=== PATIENT | female | born 1980 ===

== ENCOUNTER 2020-09-25 18:13 | Emergency (ER) | payer OTHER, SELFPAY ==
[2020-09-25] VITALS (7 sets, daily range): BP systolic 104–138; BP diastolic 63–118; PULSE 56–78; RESP 14–20; TEMP 36.6; O2SAT 98–100
--- NOTE | ~2020-09-25 | XR_ITS ---
EXAMINATION: XR hip RT 2V w AP pelvis DATE: 09/25/2020 19:31 INDICATION: Right hip injury. TECHNIQUE: An anteroposterior view of the pelvis on 2 radiographs and 2 views of right hip were obtai huma. COMPARISON: None. FINDINGS: Bone alignment is normal. No fracture. The hip joint spaces are normal. Surgical clips over lie right abdomen. Bowel staple lines are noted. IMPRESSION: 1. No fracture. Reviewed, dictated and finalized at location A. ING OPERATOR IMPRESSION: 1. No fracture.
--- NOTE | ~2020-09-25 | CT_ITS ---
EXAMINATION: CT brain wo con DATE: 09/25/2020 19:30 INDICATION: Head injury. TECHNIQUE: Computed tomography (CT) of the head was performed without intravenous contrast. The mA wa s adjusted according to patient size. Iterative reconstruction technique was employed. The dose-lengt h product was 605.33 mGy-cm. COMPARISON: None FINDINGS: There is no intracranial hemorrhage, acute infarction, or abnormal intracranial mass lesion . The ventricles are normal in size. There is mild mucosal thickening in sphenoid sinus. The mastoid air cells are normal. The orbits are normal. IMPRESSION: 1. Normal brain. Reviewed, dictated and finalized at location A. CTOR MARKET RESEARCH IMPRESSION: 1. Normal brain.
--- NOTE | ~2020-09-25 | XR_ITS ---
EXAMINATION: XR elbow RT 2V DATE: 09/25/2020 19:31 INDICATION: Right elbow pain. Fall. TECHNIQUE: 4 views of right elbow were obtained. COMPARISON: None. FINDINGS: Bone alignment is normal. No fracture. Joint spaces are well maintained. There is no elbow joint effusion. IMPRESSION: 1. Normal right elbow. Reviewed, dictated and finalized at location A. RICT ADMINISTRATIVE ASSISTANT IMPRESSION: 1. Normal right elbow.
--- NOTE | ~2020-09-25 | CT_ITS ---
EXAMINATION: CT cervical spine wo con DATE: 09/25/2020 19:29 INDICATION: Neck injury. TECHNIQUE: Computed tomography (CT) of the cervical spine was performed without intravenous contrast. Automated exposure control and iterative reconstruction technique were employed. The dose-length pro duct was 451.67 mGy-cm. COMPARISON: None FINDINGS: There is hypolordosis of cervical spine. Vertebral body heights are normal. C1 ring is unun ited posteriorly, a normal variant. Intervertebral disc heights are normal. 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 At C4-C5, there is mild bilateral uncovertebral joint osteoarth ritis. At C4-C5, there is mild right neural foraminal stenosis. No central canal stenosis. IMPRESSION: 1. No fracture. Reviewed, dictated and finalized at location A. ING MACHINE MECHANIC IMPRESSION: 1. No fracture.
[2020-09-25 18:32] LABS: Glucose Point of Care 129 (65-105)
[2020-09-25 18:57] LABS: Pregnancy On Board Control Positive; Urine Pregnancy Test Negative
[2020-09-25] MEDS: ACETAMINOPHEN 500 MG TABLET 1000 MG PO (19:25)
--- NOTE | 2020-09-25 19:45 | ED.FALL ---
HPI - Fall General Chief Complaint: Fall Stated Complaint: head injury Source: patient Mode of arrival: ambulatory Limitations: no limitations History of Present Illness HPI Narrative: this is a 40-year-old female that presents after she slipped while at home on a wet floor and fell from a standing position hitting her right elbow right hip area and hitting head and causing pain in her neck as well. The patient slipped this occurred about 3 in the afternoon she thinks she lost consciousness for a few seconds. Currently the patient seems to be slightly confused with no nausea vomiting mild headache with no blurry vision does have some neck pain but has good range of motion and, having right elbow pain and mild bruising and swelling but has good range of motion and right hip pain with palpation and movement. Patient is neurologically intact with no blurry vision no focal deficits no arm or leg weakness. complaint: fall Onset (ago): hour(s) Fall from: standing Fall witnessed: yes, by family Place fall occurred: home Loss of consciousness: yes Length of LOC: second(s) Prolonged down time: no Symptoms prior to fall: none Context: tripped/slipped Location of injury: head and other ( neck right elbow and right hip.) Location of injury - extremities: Right: elbow ( Pain with swelling) and thigh ( pain and tenderness with palpation) Severity: moderate Severity scale (1-10): 6 Quality: aching Related Data Home Medications Medication Instructions Recorded Confirmed buspirone 15 mg PO DAILY 09/25/20 09/25/20 citalopram 20 mg PO DAILY 09/25/20 09/25/20 Allergies Allergy/AdvReac Type Severity Reaction Status Date / Time No Known Allergies Allergy Unverified 05/16/17 06:01 Review of Systems Review of Systems: All systems reviewed & are unremarkable except as noted in HPI and below PMFSH Past Medical History Medical History Depression Social History Social History Smoking status: Current every day smoker Exam Const: General: no acute distress and confusion Orientation/consciousness: patient oriented x3 HENMT: Head: normal to inspection Eyes: Conjunctivae: conjunctivae normal Pupils: Equal, round and reactive pupils present EOM: EOMs intact bilaterally Direct Ophthalmoscopy: no photophobia Neck: Neck: normal visual inspection, no lymphadenopathy and no meningeal signs Chest: Chest palpation & inspection: normal inspection of the chest Resp: Effort & Inspection: normal respiratory effort Cardio: Rate: regular rate Rhythm: regular rhythm GI: Auscultation: normal bowel sounds : General: Yes no CVA tenderness Back/Spine/Pelvis: Back: no CVA tenderness Skin: General skin exam: normal color Rashes: no rashes Neuro: General: patient oriented x3, moves all extremities, no meningeal signs, no focal motor deficits and CN's II-XI intact bilaterally Cranial nerves: Yes Nystagmus not present Speech: normal speech Gait exam (Neuro): Normal gait present Extrem: Other: mild swelling and bruising to the right elbow pain and tenderness with some palpation to the right it hip area Psych: Appearance: grossly normal Mental Status: mental status grossly normal Affect: normal affect Attitude: cooperative Course Course Emergency Course: patient received a g of Tylenol, and reviewed CT scan and x-ray findings and explained her that there was no fractures and no acute injury to the brain or neck. Advised to take Tylenol as needed and follow-up with primary care physician in 1 to 2 weeks for further evaluation and lisa Vital Signs Vital signs: Vital Signs Temperature 36.6 C 09/25/20 18:13 Pulse Rate 69 09/25/20 18:13 Respiratory Rate 14 09/25/20 18:13 Blood Pressure 125/82 09/25/20 18:13 Pulse Oximetry 100 09/25/20 18:13 Temperature 36.6 C 09/25/20 18:13 Pulse Rate 69
== END 2020-09-25 20:09 | disposition home or self-care (01) ==
PROVIDERS: Emergency Provider Emergency Medicine; PCP Family Medicine
DX: S06.0X9A Concussion with loss of consciousness of unspecified duration, initial encounter (principal); W01.0XXA Fall on same level from slipping, tripping and stumbling without subsequent striking against object, initial encounter
CPT/HCPCS: 70450; 72125; 73070; 73502; 81025; 82948; 99283; 99284